=== PATIENT | male | born 1970 | race African-American/Black ===

== ENCOUNTER 2018-07-29 23:16 | Emergency (ER) | payer SELFPAY ==
[2018-07-30] MEDS ORDERED: Ibuprofen 800 MG TAB ONE (00:44)
--- NOTE | 2018-07-30 08:06 | RAD ---
THREE VIEWS RIGHT ANKLE: HISTORY: Fall. Ankle inversion. Twisting injury. FINDINGS: There is lateral soft tissue swelling. Definite fracture is not appreciated. Chronic changes involv ing the talonavicular articulation is noted. IMPRESSION: Lateral soft tissue swelling, without evidence of fracture. POS: [facility]
--- NOTE | 2018-07-30 08:07 | RAD ---
FOUR VIEWS RIGHT KNEE: HISTORY: Fall. Pain. COMPARISON: None. FINDINGS: No fracture. No cortical irregularity or periosteal reaction. Mild loss of the patellofemoral joint space height. Mild to moderate loss of the medial patella joint space height. No joint effusion. IMPRESSION: 1. Bicompartmental degenerative change. 2. No fracture. POS: [facility]
== END 2018-07-30 01:14 | disposition home or self-care (01) ==
LOC: ERS 23:16
DX: S93.401A Sprain of unspecified ligament of right ankle, initial encounter (principal); S80.211A Abrasion, right knee, initial encounter; I10 Essential (primary) hypertension; F17.210 Nicotine dependence, cigarettes, uncomplicated; W19.XXXA Unspecified fall, initial encounter

== ENCOUNTER 2018-09-27 12:54 | Emergency (ER) | payer SELFPAY ==
[2018-09-27] MEDS ORDERED: HYDROcodone/Acetaminophen 10/325 mg Tablet ONE (13:25)
== END 2018-09-27 13:34 | disposition home or self-care (01) ==
LOC: ERS 12:54
DX: B02.9 Zoster without complications (principal); F17.210 Nicotine dependence, cigarettes, uncomplicated; I10 Essential (primary) hypertension
CPT/HCPCS: 99282

== ENCOUNTER 2020-12-25 10:49 | Emergency (ER) | payer OTHER, SELFPAY ==
[2020-12-25 11:31] LABS: #Basophils 0.1 thou/uL (0.0-0.2); #Eosinphils 0.2 thou/uL (0.0-0.7); #Lymphocytes 2.2 thou/uL (1.20-3.40); #Monocytes 0.6 thou/uL (0.11-0.59); #Neutrophils 4.6 thou/uL (1.40-6.50); %Eosinophils 2.1 % (0.0-10.0); %Lymphocytes 28.9 % (21.0-51.0); Hemoglobin 13.3 g/dL (14.0-18.0); Mean Corpuscular HGB CONC 32.7 g/dL (32.0-36.0); Mean Corpuscular Hemoglobin 25.4 pg (27.0-31.0); Mean Corpuscular Volume 77.7 fL (78.0-98.0); Mean Platelet Volume 8.1 fL (7.4-10.4); Platelet Count 295 thou/uL (130-400); RBC Distribution Width 13.3 % (11.5-14.5); Red Blood Cell (RBC) Count 5.25 mill/uL (4.70-6.10); White Blood Cell (WBC) Count 7.7 thou/uL (4.8-10.8)
[2020-12-25 11:56] LABS: ALT (SGPT) 21 U/L (8-55); AST (SGOT) 21 U/L (5-34); Albumin 3.9 g/dL (3.5-5.0); Alkaline Phosphatase 78 U/L (40-110); Anion Gap 12 mmol/L (10-20); BUN (Urea Nitrogen) 8 mg/dL (8.9-20.6); Bilirubin, Total 0.4 mg/dL (0.2-1.2); Calc. Creatinine Clearance 0 mL/min (70-130); Calcium 9.7 mg/dL (7.8-10.44); Carbon Dioxide 25 mmol/L (22-29); Chloride 102 mmol/L (98-107); Globulin 5.3 g/dL (2.4-3.5); Glucose 97 mg/dL (70-105); Potassium 3.5 mmol/L (3.5-5.1); Protein, Total 9.2 g/dL (6.0-8.3); Sodium 135 mmol/L (136-145)
[2020-12-25] MEDS ORDERED: Acetaminophen 500 MG TAB ONE (12:55)
[2020-12-25] MEDS ORDERED: Ketorolac Tromethamine 30 MG/ML VIAL ONE (12:55)
[2020-12-25] MEDS ORDERED: Metoclopramide HCl 10 MG/2 ML VIAL ONE (12:55)
[2020-12-25 13:53] LABS: SARS-CoV-2 NAA Rapid Test Not Detected (NotDetected)
[2020-12-25] MEDS ORDERED: Dexamethasone 10 MG/ML VIAL ONE (14:25)
== END 2020-12-25 14:45 | disposition home or self-care (01) ==
LOC: ERS 10:49
DX: B34.9 Viral infection, unspecified (principal); R51.9 Headache, unspecified; Z20.822 Contact with and (suspected) exposure to COVID-19; F17.210 Nicotine dependence, cigarettes, uncomplicated; I10 Essential (primary) hypertension
CPT/HCPCS: 36415; 70450; 71045; 80053; 84484; 85025; 87040; 93005; 94760; 96365; 96375; J1100; J1885; J2765; U0002; U0005